=== PATIENT | female | born 1965 | race Caucasian/White ===

== ENCOUNTER → 2017-02-28 | Outpatient (CLI) | payer BC, OTHER ==
--- NOTE | 2017-03-01 02:47 | REP ---
Clinical: Heel pain. Technique: AP and axial views of the right calcaneus. Findings: Calcaneus is normal in contour and appearance. No acute fracture dislocation. Articular spaces appear normal. No heel spur. No periarticular or soft tissue calcifications. Impression: Normal right calcaneus. Signed by Boris Boyce MD 03/01/2017 02:39 A
== END ==
LOC: M RAD 11:48
PROVIDERS: ATTEND Family Medicine
DX: M25.571 Pain in right ankle and joints of right foot (principal)

== ENCOUNTER → 2017-08-05 | Outpatient (REF) | payer OTHER ==
[2017-08-05 12:35] LABS: MEAN CORPUSCULAR HEMOGLOBIN 30.5 pg (27.0-33.0); MEAN CORPUSCULAR HGB CONC 32.1 g/dl (32.0-36.5); MEAN CORPUSCULAR VOLUME 94.9 fl (80.0-96.0); RED CELL DISTRIBUTION WIDTH 13.9 % (11.5-14.5); WHITE BLOOD COUNT 4.6 10^3/uL (4.0-10.0)
== END ==
LOC: M SFHCWAGY 11:43
PROVIDERS: ATTEND Nurse Practitioner Family
DX: N92.1 Excessive and frequent menstruation with irregular cycle (principal)

== ENCOUNTER → 2018-03-29 | Outpatient (REF) | payer BC | LOC: M LAB REF 10:56 | DX: N39.0 Urinary tract infection, site not specified (principal) | CPT/HCPCS: 87186 ==

== ENCOUNTER → 2018-07-24 | Outpatient (CLI) | payer BC, OTHER ==
[2018-07-24 13:07] LABS: HEMATOCRIT 37.7 % (36.0-47.0); HEMOGLOBIN 12.5 g/dl (12.0-15.5); MEAN CORPUSCULAR HEMOGLOBIN 31.1 pg (27.0-33.0); MEAN CORPUSCULAR HGB CONC 33.2 g/dl (32.0-36.5); MEAN CORPUSCULAR VOLUME 93.8 fl (80.0-96.0); PLATELET COUNT, AUTOMATED 310 10^3/uL (150-450); RED BLOOD COUNT 4.02 10^6/uL (4.00-5.40); RED CELL DISTRIBUTION WIDTH 13.7 % (11.5-14.5); WHITE BLOOD COUNT 6.3 10^3/uL (4.0-10.0)
[2018-07-24 13:23] LABS: ALBUMIN 3.8 GM/DL (3.2-5.2); ALBUMIN/GLOBULIN RATIO 1.19 (1.00-1.93); ALKALINE PHOSPHATASE 63 U/L (45-117); ALT/SGPT 18 U/L (12-78); ANION GAP 11 MEQ/L (8-16); AST/SGOT 13 U/L (7-37); BILIRUBIN,TOTAL 0.2 MG/DL (0.2-1.0); BLOOD UREA NITROGEN 14 MG/DL (7-18); C REACTIVE PROTEIN QUANTITATIV 0.66 MG/DL (0.00-0.30); CALCIUM LEVEL 8.5 MG/DL (8.5-10.1); CARBON DIOXIDE LEVEL 24 MEQ/L (21-32); CHLORIDE LEVEL 107 MEQ/L (98-107); CHOLESTEROL LEVEL 189 MG/DL (<200); CHOLESTEROL RISK RATIO 3.315 (<5); CREATININE FOR GFR 0.82 MG/DL (0.55-1.30); GLOMERULAR FILTRATION RATE > 60.0 (>51); GLUCOSE, FASTING 89 MG/DL (70-100); HDL CHOLESTEROL 57 MG/DL (>40); LDL CHOLESTEROL 71 MG/DL (<100); NON-HDL-C 132 MG/DL; RHEUMATOID FACTOR QUANT < 10.0 IU/ML (<15.0); SODIUM LEVEL 142 MEQ/L (136-145); TRIGLYCERIDES LEVEL 303 MG/DL (<150)
[2018-07-24 13:44] LABS: ERYTHROCYTE SEDIMENTATION RATE 10 mm/hr (0-30)
[2018-07-27 00:11] LABS: CYCLIC CITRULLINATED PEPTIDE 8 units (0-19)
== END ==
LOC: M ADAMS 10:52
DX: M79.642 Pain in left hand (principal); M79.641 Pain in right hand
CPT/HCPCS: 84443

== ENCOUNTER → 2019-07-10 | Outpatient (REF) | payer OTHER ==
[2019-07-13 14:42] LABS: HPV HYBRID CAPTURE II Negative (Negative)
== END ==
LOC: M SFHCWAGY 09:22
PROVIDERS: ATTEND Nurse Practitioner Women's Health
DX: Z12.4 Encounter for screening for malignant neoplasm of cervix (principal)
CPT/HCPCS: 87624; G0123

== ENCOUNTER → 2019-07-10 | Outpatient (CLI) | payer BC ==
--- NOTE | 2019-07-10 12:56 | REP ---
BILATERAL MAMMOGRAM WITH 3D TOMOSYNTHESIS: No family history of breast cancer. [facility]%. COMPARISON: 04/26/2016 as well as other prior exams. Moderate heterogeneous fibroglandular tissue is again seen bilaterally. There appears to be a fairly well circumscribed nodule in the left retroareolar region, 1.3 cm in diameter. No other mass or architectural distortion is seen bilaterally. No clustered microcalcifications are seen. IMPRESSION: BIRADS 0: BI-RADS/ACR category 0 mammogram, Incomplete: Need additional imaging evaluation and/or prior mammograms for comparison. ACR 0 incomplete. There appears to be a smoothly marginated, well-circumscribed nodule in the left retroareolar region approximately 1.3 cm in diameter. Recommend spot compression views with the nipple in profile as well as ultrasound to further evaluate. This mammogram was interpreted with the aid of an FDA-approved computer-aided detection system. The patient states she/he had a clinical breast exam in 07/2019. The patient letter being requested is M0.
== END ==
LOC: M WHC 09:12
PROVIDERS: ATTEND Nurse Practitioner Women's Health
DX: Z12.31 Encounter for screening mammogram for malignant neoplasm of breast (principal)

== ENCOUNTER → 2019-07-18 | Outpatient (CLI) | payer BC, OTHER ==
--- NOTE | 2019-07-18 13:51 | REP ---
DIAGNOSTIC MAMMOGRAM LEFT BREAST WITH LEFT BREAST ULTRASOUND: Spot compression views of the left breast performed and correlated with recent mammogram of 07/10/2019 and compared to other prior studies. There is a round fairly well circumscribed nodule in the immediate left retroareolar region measuring approximately 12 mm. This is new when compared to the more remote exams. Real-time sonographic evaluation of the left breast performed in the retroareolar region. There are two adjacent cysts present by a thin septation. These are benign. Total measurements are 14 x 7 x 10 mm. IMPRESSION: BIRADS 2: BI-RADS/ACR category 2 mammogram. Benign Findings. Well circumscribed nodule in the left retroareolar region corresponds to the two adjacent simple cysts. Findings are benign. Recommend followup mammogram in 1 year. The patient letter being requested is M1. Electronically Signed by Ever Gasca MD 07/19/2019 04:44 P
== END ==
LOC: M RAD 11:12
PROVIDERS: ATTEND Nurse Practitioner Women's Health
DX: N60.12 Diffuse cystic mastopathy of left breast (principal)

== ENCOUNTER → 2020-05-08 | Outpatient (CLI) | payer BC ==
--- NOTE | 2020-05-08 12:21 | REP ---
DIAGNOSTIC MAMMOGRAM LEFT BREAST WITH LEFT BREAST ULTRASOUND: HISTORY: Palpable lump, left retroareolar region. Comparison mammogram and ultrasound 07/18/2019, as well as other prior exams. No family history of breast cancer. [facility] lifetime risk of breast cancer 7.0%. MLO and CC views of the left breast performed with 3D tomosynthesis. Additional spot compression views performed in the left retroareolar region. There is again moderate fibroglandular tissue present, which is unchanged. There is again a smoothly marginated nodule in the left retroareolar region, which as not definitely changed when compared to the prior study. No new mass or architectural distortion is seen. No clustered microcalcifications are seen. Real-time sonographic evaluation of the left retroareolar region is again performed. Once again, there is a bilobed cyst with thin septation which is unchanged since the prior exam. It measures 1.3 x 1.0 x 0.7 cm and appears benign. IMPRESSION: BIRADS 2: BI-RADS/ACR category 2 mammogram. Benign Findings. ACR 2 benign. Stable bilobed left retroareolar cyst at the site of the palpable lump. There is no change since the prior study of 07/18/2019. Recommend followup bilateral mammogram in July 2020. This mammogram was interpreted with the aid of an FDA-approved computer-aided detection system. A. Negative x-ray reports should not delay biopsy if a dominant or clinically suspicious mass is present. B. Four to eight percent of cancers are not identified by x-ray. C. Adenosis and dense breasts may obscure an underlying neoplasm. The patient states she/he had a clinical breast exam in July 2015. The patient letter being requested is M2. Heraclio: [place].?
== END ==
LOC: M WHC 09:13
PROVIDERS: ATTEND Nurse Practitioner Women's Health
DX: N60.12 Diffuse cystic mastopathy of left breast (principal); N63.20 Unspecified lump in the left breast, unspecified quadrant
CPT/HCPCS: 76642; 77065; G0279

== ENCOUNTER 2020-09-16 19:03 | Emergency (ER) | payer BC, OTHER ==
[2020-09-16 19:40] LABS: BASO % 0.5 % (0.0-1.0); EOS # 0.1 10^3/uL (0.0-0.5); EOS % 0.9 % (0.0-3.0); HEMATOCRIT 41.4 % (36.0-47.0); HEMOGLOBIN 12.9 g/dl (12.0-15.5); LYMPH # 3.5 10^3/uL (1.5-5.0); LYMPH % 59.6 % (24.0-44.0); MEAN CORPUSCULAR HEMOGLOBIN 28.9 pg (27.0-33.0); MEAN CORPUSCULAR HGB CONC 31.2 g/dl (32.0-36.5); MEAN CORPUSCULAR VOLUME 92.6 fl (80.0-96.0); MONO # 0.5 10^3/uL (0.0-0.8); MONO % 8.9 % (0.0-5.0); NEUTROPHILS # 1.8 10^3/uL (1.5-8.5); NEUTROPHILS % 29.9 % (36.0-66.0); PLATELET COUNT, AUTOMATED 302 10^3/uL (150-450); RED BLOOD COUNT 4.47 10^6/uL (4.00-5.40); WHITE BLOOD COUNT 5.9 10^3/uL (4.0-10.0)
[2020-09-16 20:09] LABS: ALBUMIN 4.1 GM/DL (3.2-5.2); ALT/SGPT 34 U/L (12-78); BILIRUBIN,DIRECT < 0.1 MG/DL (0.0-0.2); BILIRUBIN,TOTAL 0.2 MG/DL (0.2-1.0); BLOOD UREA NITROGEN 17 MG/DL (7-18); CALCIUM LEVEL 8.9 MG/DL (8.5-10.1); CARBON DIOXIDE LEVEL 29 MEQ/L (21-32); CHLORIDE LEVEL 108 MEQ/L (98-107); CPK CREATINE PHOSPHOKINASE 100 U/L (26-192); GLOMERULAR FILTRATION RATE > 60.0 (>51); GLUCOSE, FASTING 143 MG/DL (70-100); POTASSIUM SERUM 3.7 MEQ/L (3.5-5.1); SALICYLATE LEVEL < 1.7 MG/DL (5.0-30.0); SODIUM LEVEL 143 MEQ/L (136-145); TOTAL PROTEIN 7.3 GM/DL (6.4-8.2)
[2020-09-16 20:10] LABS: ACETAMINOPHEN LEVEL < 2.0 UG/ML (10.0-30.0); ETHYL ALCOHOL (ETHANOL) < 0.003 % (0.000-0.010)
[2020-09-16 20:36] LABS: AMPHETAMINES LEVEL URINE NEGATIVE (NEGATIVE); BARBITURATES URINE NEGATIVE (NEGATIVE); BENZODIAZEPINES URINE POSITIVE (NEGATIVE); CANNABINOIDS URINE NEGATIVE (NEGATIVE); COCAINE METABOLITE URINE NEGATIVE (NEGATIVE); METHADONE URINE NEGATIVE (NEGATIVE); OPIATES URINE NEGATIVE (NEGATIVE); PHENCYCLIDINE URINE NEGATIVE (NEGATIVE)
[2020-09-16] MEDS ORDERED: ALPR1TAB3 PO (21:09)
[2020-09-16] MEDS ORDERED: TIZA4CAP PO (21:09)
[2020-09-16] MEDS ORDERED: ZOLP10TA2 PO (21:09)
[2020-09-17] MEDS ORDERED: ALPRAZolam 0.5 MG TAB PO ONE (01:00)
[2020-09-17] MEDS ORDERED: tiZANidine 4 MG TAB PO ONE (02:15)
[2020-09-17] MEDS ORDERED: zolPIDEM TARTRATE 5 MG TAB PO ONE (02:15)
[2020-09-17] MEDS ORDERED: TIZA4CAP PO (03:06)
[2020-09-17] MEDS ORDERED: TRAM50TA2 PO (03:06)
[2020-09-17] MEDS ORDERED: ZOLP10TA2 PO (03:06)
[2020-09-17] MEDS ORDERED: ALPR1TAB3 PO (03:06)
[2020-09-17] MEDS ORDERED: PATIENT COMMENT (03:07)
[2020-09-17 05:54] VITALS: BP 119/68
--- NOTE | 2020-09-17 07:25 | ECGEPIP ---
[facility] - ED Test Date: 2020-09-17 Pat Name: ANGELES NICHOLE Department: Room: - Gender: Female Endocrinology Physician: MARCIAL : [id number] Requested By: BOB PARSONS Order Number: [id number] Reading MD: Dexter Murray Measurements Intervals [place] Rate: 64 P: 62 AK: 166 QRS: 57 QRSD: 105 T: 32 QT: 424 QTc: 440 Interpretive Statements SINUS RHYTHM NONSPECIFIC T-WAVE ABNORMALITY Comparison tracing not on file Electronically Signed on 09-17-2020 7:25:18 EST by Dxeter Murray
== END 2020-09-17 07:09 | disposition short-term general hospital (02) ==
LOC: M ED 19:03
DX: R45.850 Homicidal ideations (principal); F20.9 Schizophrenia, unspecified; Z63.0 Problems in relationship with spouse or partner; Z79.899 Other long term (current) drug therapy
CPT/HCPCS: 36415; 80048; 80076; 80307; 81001; 82550; 84443; 85025; 93005; 93041; 94760; 99285; G0480; U0002